=== PATIENT | male | born 1985 | race Caucasian/White ===

== ENCOUNTER 2025-03-24 16:43 | Emergency (ER) | payer OTHER ==
[~2025-03-24] VITALS: Ht 180.3 cm; Wt 98.8 kg
[2025-03-24] MEDS ORDERED: KETOROLAC TROMETHAMINE 60 MG/2 ML VIAL IM ONE (19:45)
[2025-03-24 21:08] VITALS: BP 148/84
[2025-03-24] MEDS ORDERED: OMEPRAZOLE20 MG PO (21:15)
[2025-03-24] MEDS ORDERED: GUANFACINE HCL2 MG PO (21:15)
[2025-03-24] MEDS ORDERED: HYDROCHLOROTHIA50 MG PO (21:16)
[2025-03-24] MEDS ORDERED: FLOMAX0.4 MG PO (21:17)
[2025-03-24] MEDS ORDERED: KEPPRA1000 MG PO (21:17)
== END 2025-03-24 21:08 | disposition home or self-care (01) ==
LOC: ED 16:43
DX: S02.2XXA Fracture of nasal bones, initial encounter for closed fracture (principal); F43.10 Post-traumatic stress disorder, unspecified; Y04.8XXA Assault by other bodily force, initial encounter; Z79.899 Other long term (current) drug therapy; Z88.0 Allergy status to penicillin
CPT/HCPCS: 70486; 96372; 99284-25; J1885